=== PATIENT | male | born 1995 | race Caucasian/White ===

== ENCOUNTER → 2021-01-19 10:22 | Outpatient (CLI) | payer OTHER, MEDICAID, SELFPAY ==
[2021-01-25 20:36] LABS: QuantiFERON Mitogen Value >10.00 IU/mL (.); QuantiFERON Nil Value 0.05 IU/mL (.); QuantiFERON TB Gold Plus Negative (Negative); QuantiFERON TB1 Ag Value 0.02 IU/mL (.); QuantiFERON TB2 Ag Value 0.01 IU/mL (.)
== END ==
PROVIDERS: Referring Provider Physician Assistant; Visit Provider Physician Assistant
DX: Z11.1 Encounter for screening for respiratory tuberculosis (principal)
CPT/HCPCS: 36415; 86480